=== PATIENT | female | born 1955 | race Caucasian/White ===

== ENCOUNTER 2021-07-06 18:17 | Emergency (ER) | payer OTHER ==
[2021-07-06 18:57] LABS: INR-International Normal Ratio 2.2; PTT 38.1 sec (22.0-33.0); Prothrombin Time 23.5 sec (9.5-12.1)
[2021-07-06 19:26] LABS: #Basophils 0.1 10x3/uL (0.0-0.2); #Eosinphils 0.1 10x3/uL (0.0-0.5); #Monocytes 0.6 10x3/uL (0.0-1.1); #Neutrophils 4.9 10x3/uL (1.5-8.4); %Basophils 0.6 % (0.0-2.0); %Eosinophils 1.4 % (0.0-6.0); %Lymphocytes 25.7 % (18.0-47.0); %Monocytes 8.2 % (0.0-10.0); %Neutrophils 63.8 % (40.0-75.0); Hemoglobin 14.1 g/dL (12.0-15.5); Mean Corpuscular HGB CONC 32.6 g/dL (32.0-36.0); Mean Corpuscular Hemoglobin 29.7 pg (27.0-33.0); Mean Corpuscular Volume 91.4 fl (81.6-98.3); Mean Platelet Volume 11.8 fl (7.4-10.4); Platelet Count 210 10x3/uL (150-450); RBC Distribution Width 14.1 % (11.5-14.5); Red Blood Cell (RBC) Count 4.74 10x6/uL (3.90-5.03); White Blood Cell (WBC) Count 7.7 10x3/uL (3.5-10.5)
[2021-07-06 19:37] LABS: ALT (SGPT) 33 U/L (8-55); AST (SGOT) 26 U/L (5-34); Albumin 4.4 g/dL (3.4-4.8); Alkaline Phosphatase 88 U/L (40-110); Anion Gap 14 mmol/L (10-20); BUN (Urea Nitrogen) 25 mg/dL (9.8-20.1); Bilirubin, Total 0.4 mg/dL (0.2-1.2); Calc. Creatinine Clearance 0 mL/min (70-130); Calcium 9.6 mg/dL (7.8-10.44); Carbon Dioxide 26 mmol/L (23-31); Chloride 103 mmol/L (98-107); Globulin 3.1 g/dL (2.4-3.5); Glucose 100 mg/dL (80-115); Protein, Total 7.5 g/dL (5.8-8.1); Sodium 139 mmol/L (136-145)
[2021-07-06] MEDS ORDERED: Enoxaparin Sodium 100 MG/ML SYRINGE ONE (19:57)
[2021-07-06] MEDS ORDERED: Enoxaparin Sodium 30 MG/0.3 ML SYRINGE ONE (19:58)
== END 2021-07-06 20:43 | disposition home or self-care (01) ==
LOC: CSHERS 18:17
DX: I82.401 Acute embolism and thrombosis of unspecified deep veins of right lower extremity (principal); I10 Essential (primary) hypertension; E78.5 Hyperlipidemia, unspecified; Z79.82 Long term (current) use of aspirin; Z79.899 Other long term (current) drug therapy
CPT/HCPCS: 80053; 85025; 85610; 85730; J1650

== ENCOUNTER → 2021-07-06 | Day surgery (SDC) | payer OTHER | LOC: CSHULT 15:48 | PROVIDERS: ATTEND Internal Medicine Nephrology | DX: I82.411 Acute embolism and thrombosis of right femoral vein (principal); I10 Essential (primary) hypertension; E78.5 Hyperlipidemia, unspecified; Z79.82 Long term (current) use of aspirin; Z79.899 Other long term (current) drug therapy | CPT/HCPCS: 80053; 85025; 85610; 85730; 96372; 99283; J1650 ==

== ENCOUNTER 2022-10-31 14:23 | Outpatient (CLI) | payer BC, OTHER | END 2022-10-31 14:24 | disposition home or self-care (01) | LOC: CSHMAMMO 14:23 | PROVIDERS: ATTEND Family Medicine | DX: Z00.00 Encounter for general adult medical examination without abnormal findings (principal); M85.851 Other specified disorders of bone density and structure, right thigh; M85.852 Other specified disorders of bone density and structure, left thigh; Z78.0 Asymptomatic menopausal state | CPT/HCPCS: 77063; 77067; 77080 ==

== ENCOUNTER 2023-06-23 23:20 | Emergency (ER) | payer OTHER, BC ==
[2023-06-24] MEDS ORDERED: HYDROcodone/Acetaminophen 5/325 mg Tablet ONE (01:20)
== END 2023-06-24 01:25 | disposition home or self-care (01) ==
LOC: CSHERS 23:20
DX: S20.211A Contusion of right front wall of thorax, initial encounter (principal); S90.112A Contusion of left great toe without damage to nail, initial encounter; Z79.01 Long term (current) use of anticoagulants; I10 Essential (primary) hypertension; E78.5 Hyperlipidemia, unspecified; Z86.718 Personal history of other venous thrombosis and embolism; Z79.899 Other long term (current) drug therapy; Z79.82 Long term (current) use of aspirin; V89.2XXA Person injured in unspecified motor-vehicle accident, traffic, initial encounter
CPT/HCPCS: 71046; 93005; 93010

== ENCOUNTER 2023-08-10 05:51 | Day surgery (SDC) | payer BC ==
[2023-08-07 12:10] VITALS: BMI 34.8
[2023-08-10] MEDS ORDERED: PROPOFOL 60 ML ONE (07:21)
[2023-08-10] MEDS ORDERED: Lidocaine 1% PF 5 ML VIAL ONE (07:21)
== END 2023-08-10 09:09 | disposition home or self-care (01) ==
LOC: CSHSDC 05:51
PROVIDERS: ATTEND Internal Medicine Gastroenterology
PROC: 0DBL8ZX Excision of Transverse Colon, Via Natural or Artificial Opening Endoscopic, Diagnostic (ICD-10-PCS; principal; 2023-08-10)
PROC: 0DBP8ZX Excision of Rectum, Via Natural or Artificial Opening Endoscopic, Diagnostic (ICD-10-PCS; principal; 2023-08-10)
DX: Z12.11 Encounter for screening for malignant neoplasm of colon (principal); D12.3 Benign neoplasm of transverse colon; D12.8 Benign neoplasm of rectum; K57.30 Diverticulosis of large intestine without perforation or abscess without bleeding; I10 Essential (primary) hypertension; I48.91 Unspecified atrial fibrillation; E66.9 Obesity, unspecified; E78.5 Hyperlipidemia, unspecified; M10.9 Gout, unspecified; M19.90 Unspecified osteoarthritis, unspecified site; F32.A Depression, unspecified; D68.2 Hereditary deficiency of other clotting factors; R19.5 Other fecal abnormalities; Z88.0 Allergy status to penicillin; Z88.2 Allergy status to sulfonamides; Z87.891 Personal history of nicotine dependence; Z68.34 Body mass index [BMI] 34.0-34.9, adult; Z90.49 Acquired absence of other specified parts of digestive tract; Z96.651 Presence of right artificial knee joint; Z98.890 Other specified postprocedural states; Z79.01 Long term (current) use of anticoagulants; Z86.718 Personal history of other venous thrombosis and embolism; Z91.048 Other nonmedicinal substance allergy status
CPT/HCPCS: 88305; J2704